=== PATIENT | female | born 1955 | race Caucasian/White ===

== ENCOUNTER → 2017-06-20 | Day surgery (SDC) | payer BC ==
[2017-06-19 10:28] VITALS: BMI 23.8
[~2017-06-20] MED LIST: BUPIVACAINE (PF) 0.25% 30 ML VIAL SQ ONE; DEXAMETHASONE SOD PHOS (MDV) 100 MG/10 ML VIAL IV ONE; GLYCOPYRROLATE 0.2 MG/ML 2 ML VIAL ONE; HYDROmorphone (PF) 1 MG/ML ONE; KETAMINE 10 MG/ML 20 ML VIAL ONE; LACTATED RINGERS 1,000 ML IV SCH; LIDOCAINE 1% 20 ML VIAL (10MG/ML) FOR IV START INTRADERMA ONE; LIDOCAINE 1% INJ 10MG/ML (20 ML MDV) ONE; MIDAZOLAM 2 MG/2 ML VIAL ONE; ONDANSETRON 4 MG/2 ML VIAL IVP ONE; PROPOFOL 10 MG/ML 20 ML VIAL IV ONE; Pre Op ABX Message 1 EACH MISC MISCELLANE ONE; SODIUM CHLORIDE 0.9% 500 ML with HEPARIN SODIUM,PORCINE 5,000 UNIT IV ONE; ceFAZolin IN SWFI 2 GM/20 ML SYRINGE IVP ONE; fentaNYL (PF) 50 MCG/ML 2 ML AMP ONE
--- NOTE | 2017-06-20 09:03 | P.GSHP ---
History of Present Illness H&P Date: 06/20/17 CHIEF COMPLAINT: Colon cancer HISTORY OF PRESENT ILLNESS: The patient is a 61-year-old female diagnosed with colon cancer. She needs a Mediport placement for chemotherapy. PAST MEDICAL HISTORY: See list PAST SURGICAL HISTORY: See list CURRENT MEDICATIONS: See list. ALLERGIES: See list. SOCIAL HISTORY: Has active tobacco use. FAMILY HISTORY: Noncontributory. REVIEW OF ORGAN SYSTEMS: CONSTITUTIONAL: Has weight loss. PHYSICAL EXAMINATION: Vital signs: Stable GENERAL: Well developed and in no acute distress. Pleasant. HEENT: No sclera icterus. Extraocular movements grossly intact. Moist buccal mucosa. Head is atraumatic, normocephalic. Hears conversational speech. No nasal drainage. NECK: Supple without lymphadenopathy. No JV distention. CHEST: Non-labored respirations and equal bilateral excursions. CARDIOVASCULAR: Regular rate and rhythm. Palpable 2+ radial pulses. ABDOMEN: Nontender. MUSCULOSKELETAL: No clubbing, cyanosis or edema. NEUROLOGIC: No focal or lateralizing signs. PSYCH: Appropriate affect. Alert and oriented to person, place and time. ASSESSMENT: 1. Colon cancer. 2. Need for chemotherapeutic access. PLAN: 1. Agree with Port-A-Cath placement. Past Medical History Past Medical History: Cancer Additional Past Medical History / Comment(s): Hx of Colon Ca 3 years ago; recently Dx of Lung CA History of Any Multi-Drug Resistant Organisms: None Reported Past Surgical History: Bowel Resection, Tonsillectomy Additional Past Surgical History / Comment(s): Colonoscopy Past Anesthesia/Blood Transfusion Reactions: No Reported Reaction Smoking Status: Current every day smoker - Past Family History Mother Family Medical History: No Reported History Medications and Allergies Home Medications Medication Instructions Recorded Confirmed Type Albuterol Inhaler [Ventolin Hfa 1 - 2 puff INHALATION Q6HR PRN 06/19/17 History Inhaler] Tiotropium Br/Olodaterol HCl 1 spray INHALATION DAILY 06/19/17 06/19/17 History [Stiolto Respimat Inhal [place]] Allergies Allergy/AdvReac Type Severity Reaction Status Date / Time No Known Allergies Allergy Verified 06/19/17 10:21
[2017-06-20 11:53] VITALS: TEMP 96.8
--- NOTE | 2017-06-20 12:04 | P.OP ---
Date of Procedure: 06/20/17 Description of Procedure: SURGEON: HALEY ARORA MD ARCHITECTURAL EXAMINER: None. PREOPERATIVE DIAGNOSES: 1. Colon cancer. 2. Need for chemotherapeutic access. 3. Chronic obstructive pulmonary disease. 4. Active tobacco abuse. POSTOPERATIVE DIAGNOSES: 1. Colon cancer. 2. Need for chemotherapeutic access. 3. Chronic obstructive pulmonary disease. 4. Active tobacco abuse. PROCEDURES PERFORMED: 1. Ultrasound guided central venous access of the right internal jugular venous vein. 2. Fluoroscopic guidance for central venous access right internal jugular vein less than 10 seconds. 3. Placement of right internal jugular power port 6 [place] by [employer] ANESTHESIA: IV sedation with 20 mL 1% lidocaine. ESTIMATED BLOOD LOSS: 5 mL. SPECIMENS REMOVED: None. COMPLICATIONS: None. INDICATIONS: The patient is a 61-year-old female recently diagnosed with colon cancer. She presents for chemotherapeutic access. Benefits and risks of surgical intervention were described including bleeding, infection, mechanical problems with his port. Informed consent was obtained. DESCRIPTION OR PROCEDURE: Patient was brought into the operating room, laid in supine position. After adequate IV sedation, the chest and right neck were prepped and draped in a standard sterile fashion including the shoulder with ChloraPrep. Timeout protocol was confirmed with the surgical team regarding the patient's name, procedure to be performed including preoperative medications for which she received IV antibiotics. Bilateral SCDs were placed. An ultrasound was used to capture views of the right internal jugular vein including right carotid artery, which was patent and without thrombus along its course. The right IJ was then localized using anesthetic for the skin. A 16 [place] needle was used to access the IJ. A guidewire was advanced into the IJ with dark nonpulsatile venous blood. Two fingerbreadths distal to the clavicle, on the lateral third, a transverse 1.5 to 2 cm incision was deepened into the skin after localizing the skin. A pocket was created for the port. The port on the back table was flushed with heparinized saline and then attached to the catheter tubing. An adapter was fastened to the actual port site over the tubing. The port easily had fit snug into the pocket. A subcutaneous tunneler was placed along the open end of the tubing and brought out through the separate stab incision. Fluoroscopic guidance confirmed no kinking along the tubing and the port site. Next, the J-wire was exchanged for a catheter sheath for which the tubing was cut to 20 cm and then advanced through the catheter sheath. The Peel-away sheath was then removed and the tubing was secured at the junction of the superior vena cava as well as the right atrium. The tubing was found to be crossed however functional. This was all done under fluoroscopic guidance for a total of less than 10 seconds. Easy pullback as well as return and aspiration was obtained of the port site. The skin incision was closed using layers using 3-0 Vicryl for the subcu followed by 4-0 Monocryl in a running subcuticular fashion. At the stick site this was also reapproximated using 4-0 Monocryl. The incisions were covered with Optifoam. The skin was cleansed and Dermabond was applied. A total of 5 mL of local anesthetic was placed. At the end of the procedure, needle, sponge, and instrument count was verified correct by military technician. Heparin lock of 5 mL was placed. The patient was awoken and pain free and taken to the second stage postanesthesia care unit. The patient tolerated the procedure well. FINDINGS: 1. No thrombus encountered along the right carotid artery or internal jugular vein. 2. Access of the right internal jugular vein under ultrasound guidance. 3. Fluoroscopy of less than 10 seconds. Plan - Discharge Summary New Discharge Prescriptions: No Action Albuterol Inhaler [Ventolin Hfa Inhaler] 1 - 2 puff INHALATION Q6HR PRN PRN Reason: Bronchospasm Tiotropium Br/Olodaterol HCl [Stiolto Respimat Inhal [place]] 1 spray INHALATION DAILY Discharge Medication List Albuterol Inhaler [Ventolin Hfa Inhaler] 1 - 2 puff INHALATION Q6HR PRN [History] Tiotropium Br/Olodaterol HCl [Stiolto Respimat Inhal [place]] 1 spray INHALATION DAILY 06/19/17 [History]
[2017-06-20 12:19] VITALS: RESP 18
--- NOTE | 2017-06-20 12:32 | XR ---
EXAMINATION TYPE: XR chest 1V portable DATE OF EXAM: 06/20/2017 Comparison: None Clinical History: 61-year-old female status post Mediport placement Findings: Heart normal size. Aorta and pulmonary vasculature within normal limits. Patchy bibasilar densities a re noted. No significant pleural effusion. Bilateral calcified breast prostheses are present. Right a nterior chest wall injection port with catheter tip at the upper to mid SVC. Impression: 1. Patchy bibasilar densities likely atelectasis. Clinically correlate. 2. Right-sided chest wall injection port with catheter tip at the upper to mid-SVC.
[2017-06-20 12:58] VITALS: BP 126/85; PULSE 78
--- NOTE | 2017-06-20 15:04 | FL ---
Fluoroscopy HISTORY: Port-A-Cath insertion 4 seconds fluoroscopy time supplied to the referring clinician. 2 intraoperative C-arm images docume nt the procedure. See dictated report from general surgery.
--- NOTE | 2017-06-22 15:17 | CDI ---
Outpatient Documentation Clarification Form Date: 06/22/17 CDS/Tank Builder Name: Maria T Ontiveros Phone: If any questions, call Luiza Mendez Help Desk Coordinator at [phone] Patient Name: Celeste Anthony Admit Date: 06/20/17 Discharge Date: 06/20/17 ATTENTION: The [facility] Coding Staff appreciate your assistance in clarifying documentation. Please respond to the clarification below the line at the bottom and electronically sign. The [facility] Coding staff will review the response and follow-up if needed. Please note: Queries are made part of the Legal Health Record. If you have any questions, please contact the Help Desk Coordinator. Dear Dr. Payne, Does the patient have current active colon cancer or a history of colon cancer? Is the mediport placement for the purpose of treating colon cancer, lung cancer , or both? I am questioning this for multiple reasons: The order states lung cancer. The pre and postop diagnoses states colon cancer. The H&P states colon cancer under assessment, yet hx of colon ca 3 years ago under medical history. Please clarify which cancers are current and which are histories and what this encounter is treating. Thank you for your kind consideration. PLEASE SEE CORRECTED OPERATIVE REPORT AND H&P SHOWING NEW LUNG CANCER DIAGNOSIS. 06/25/2017 17:55 [facility]
== END | disposition home or self-care (01) ==
LOC: OR 09:38
PROVIDERS: ATTEND Surgery Plastic and Reconstructive Surgery
DX: C34.90 Malignant neoplasm of unspecified part of unspecified bronchus or lung (principal); J98.4 Other disorders of lung; Z85.038 Personal history of other malignant neoplasm of large intestine; Z90.49 Acquired absence of other specified parts of digestive tract; J44.9 Chronic obstructive pulmonary disease, unspecified; F17.200 Nicotine dependence, unspecified, uncomplicated; Z79.899 Other long term (current) drug therapy; Z98.82 Breast implant status
CPT/HCPCS: 36561; 77001; 71045; C1788; J2250; J1644; J2405; J2001; J3010; J1170; J1642; J1100; J2704; J0690

== ENCOUNTER 2018-03-14 10:40 | Day surgery (SDC) | payer BC ==
[2018-03-06 12:48] VITALS: BMI 22.8
--- NOTE | 2018-03-14 05:17 | P.GSHP ---
History of Present Illness H&P Date: 03/14/18 CHIEF COMPLAINT: Lung cancer HISTORY OF PRESENT ILLNESS: The patient is a 62-year-old female diagnosed with lung cancer. She had a Mediport placement. She presents for Port-A-Cath removal upon completion of her chemotherapy. PAST MEDICAL HISTORY: Breast cancer. PAST SURGICAL HISTORY: Breast biopsy. CURRENT MEDICATIONS: See list. ALLERGIES: See list. SOCIAL HISTORY: No active tobacco or alcohol use. FAMILY HISTORY: Noncontributory. REVIEW OF ORGAN SYSTEMS: CONSTITUTIONAL: Denies any fever or chills. Denies recent weight loss or weight gain. HEENT: Denies any trouble with vision, hearing or nosebleeds. No difficulty swallowing. BREASTS: Please see above. PHYSICAL EXAMINATION: Vital signs: Stable GENERAL: Well developed female and in no acute distress. Pleasant. HEENT: No sclera icterus. Extraocular movements grossly intact. Moist buccal mucosa. Head is atraumatic, normocephalic. Hears conversational speech. No nasal drainage. NECK: Supple without lymphadenopathy. No JV distention. CHEST: Non-labored respirations and equal bilateral excursions. CARDIOVASCULAR: Regular rate and rhythm. Palpable 2+ radial pulses. ABDOMEN: Nontender. MUSCULOSKELETAL: No clubbing, cyanosis or edema. NEUROLOGIC: No focal or lateralizing signs. PSYCH: Appropriate affect. Alert and oriented to person, place and time. ASSESSMENT: 1. Lung cancer 2. Need for chemotherapeutic access. PLAN: 1. Agree with Port-A-Cath removal per patient's request. Past Medical History Past Medical History: Cancer, COPD Additional Past Medical History / Comment(s): Hx of Colon Ca 3 years ago; Dx of Lung CA 06/24 last chemo tx 08/22 History of Any Multi-Drug Resistant Organisms: None Reported Past Surgical History: Bowel Resection, Tonsillectomy Additional Past Surgical History / Comment(s): Colonoscopy Past Anesthesia/Blood Transfusion Reactions: No Reported Reaction Smoking Status: Current every day smoker - Past Family History Mother Family Medical History: No Reported History Medications and Allergies Home Medications Medication Instructions Recorded Confirmed Type Albuterol Inhaler [Ventolin Hfa 1 - 2 puff INHALATION Q6HR PRN 06/19/17 History Inhaler] Tiotropium Br/Olodaterol HCl 1 spray INHALATION DAILY 06/19/17 03/12/18 History [Stiolto Respimat Inhal [place]] Allergies Allergy/AdvReac Type Severity Reaction Status Date / Time No Known Allergies Allergy Verified 03/12/18 12:19
[~2018-03-14 10:40] MED LIST changes: -BUPIVACAINE (PF) 0.25% 30 ML VIAL SQ ONE; -DEXAMETHASONE SOD PHOS (MDV) 100 MG/10 ML VIAL IV ONE; +DEXAMETHASONE SOD PHOSPHATE 10 MG/ML 1 ML VIAL IV ONE; -GLYCOPYRROLATE 0.2 MG/ML 2 ML VIAL ONE; -HYDROmorphone (PF) 1 MG/ML ONE; +HYDROmorphone 0.5 MG/0.5 ML SYRINGE IVP PRN; -KETAMINE 10 MG/ML 20 ML VIAL ONE; -LIDOCAINE 1% 20 ML VIAL (10MG/ML) FOR IV START INTRADERMA ONE; +LIDOCAINE 1% 20 ML VIAL (10MG/ML) FOR IV START INTRADERMA PRN; -LIDOCAINE 1% INJ 10MG/ML (20 ML MDV) ONE; +MIDAZOLAM 2 MG/2 ML VIAL IV PRN; -MIDAZOLAM 2 MG/2 ML VIAL ONE; -PROPOFOL 10 MG/ML 20 ML VIAL IV ONE; +SCOPOLAMINE 1.5MG/72HR PATCH TRANSDERM ONE; -SODIUM CHLORIDE 0.9% 500 ML with HEPARIN SODIUM,PORCINE 5,000 UNIT IV ONE; -fentaNYL (PF) 50 MCG/ML 2 ML AMP ONE
[2018-03-14 11:05] VITALS: TEMP 98
[2018-03-14] MEDS ORDERED: BUPIVACAIN-EPI 0.25%-1:200,000 30 ML VIAL SQ ONE (11:21)
[2018-03-14] MEDS ORDERED: MIDAZOLAM 2 MG/2 ML VIAL ONE (11:55)
[2018-03-14] MEDS ORDERED: ONDANSETRON 4 MG/2 ML VIAL ONE (11:55)
[2018-03-14] MEDS ORDERED: ceFAZolin 1,000 MG VIAL IVPB ONE (11:55)
[2018-03-14] MEDS ORDERED: KETAMINE 10 MG/ML 20 ML VIAL ONE (11:55)
[2018-03-14] MEDS ORDERED: fentaNYL (PF) 50 MCG/ML 2 ML AMP ONE (11:55)
--- NOTE | 2018-03-14 12:29 | P.OP ---
Date of Procedure: 03/14/18 Description of Procedure: SURGEON: RHIANNON PAYNE MD DIESEL MECHANIC: None. PREOPERATIVE DIAGNOSIS: 1. Lung cancer 2. Chemotherapeutic venous access. POSTOPERATIVE DIAGNOSIS: 1. Lung cancer 2. Chemotherapeutic venous access. OPERATION: Removal of right internal jugular vein Port-A-Cath. ANESTHESIA: MAC with 30 mL local ESTIMATED BLOOD LOSS: 2 mL SPECIMENS REMOVED: Port-A-Cath COMPLICATIONS: None. INDICATIONS: The patient is a 62-year-old female who completed chemotherapy for lung cancer. She now has elected for removal. Benefits and risks were described. Informed consent was obtained. DESCRIPTION OF PROCEDURE: Patient was brought to the operating room, laid in supine position. After IV sedation the chest wall was prepped and draped in standard sterile fashion. Prior to incision, a timeout protocol was confirmed with surgical team regarding the patient's name including procedures to be performed. As this was a clean case, no further antibiotics were required. Additionally, early ambulation was encouraged for DVT prophylaxis. Attention was brought to the area of the port site, whereby a total of 30 mL of local was infiltrated into the skin for a field block. A #15 blade was used to incise along the previous cicatrix. Electro- Bovie cautery was used to control for hemostasis. Adhesions were lysed around the Mediport. The port was extracted without sequelae. Pressure for 2 minutes was placed along the internal jugular vein. Hemostasis was checked along the pocket of the Port-A-Cath site. The wound was closed in layers using 3-0 Vicryl for the deep subcutaneous tissues followed by 4-0 Monocryl in a running subcuticular fashion. Liquid glue was applied to the skin. Once dried a 4 x 4 Optifoam was applied. At the end of the procedure needle, sponge and instrument counts were verified correct by the surgical forceps fabricator. The patient had tolerated the procedure well and was taken to postanesthesia care in stable condition. FINDINGS: 1. Unremarkable Port-a-cath extraction. Plan - Discharge Summary New Discharge Prescriptions: No Action Albuterol Inhaler [Ventolin Hfa Inhaler] 1 - 2 puff INHALATION Q6HR PRN PRN Reason: Bronchospasm Tiotropium Br/Olodaterol HCl [Stiolto Respimat Inhal [place]] 1 spray INHALATION DAILY Discharge Medication List Albuterol Inhaler [Ventolin Hfa Inhaler] 1 - 2 puff INHALATION Q6HR PRN [History] Tiotropium Br/Olodaterol HCl [Stiolto Respimat Inhal [place]] 1 spray INHALATION DAILY 06/19/17 [History] Follow up Appointment(s)/Referral(s): Rhiannon Payne MD [STAFF PHYSICIAN] - As Needed Patient Instructions/Handouts: *Surgery [facility] - (Anesthesia) Discharge Instructions Outpatient Surgery, Implanted Venous Access Port (DC) Activity/Diet/Wound Care/Special Instructions: May remove dressing Friday 03/16. May shower. No bathtub soaks. EXPECT BRUISING. This should resolve in 1 to 2 weeks. No lifting over 4 pounds of right arm for 5 days. Discharge Disposition: HOME SELF-CARE
[2018-03-14 12:32] VITALS: RESP 16
[2018-03-14 12:52] VITALS: BP 130/83; PULSE 90
== END 2018-03-14 13:39 | disposition home or self-care (01) ==
LOC: OR 10:40
PROVIDERS: ATTEND Surgery Plastic and Reconstructive Surgery
DX: C34.90 Malignant neoplasm of unspecified part of unspecified bronchus or lung (principal); J44.9 Chronic obstructive pulmonary disease, unspecified; Z85.038 Personal history of other malignant neoplasm of large intestine; F17.200 Nicotine dependence, unspecified, uncomplicated; Z79.899 Other long term (current) drug therapy; Z92.21 Personal history of antineoplastic chemotherapy
CPT/HCPCS: 36590; J2250; J2405; J0690; J3010